=== PATIENT | female | born 1940 | race Caucasian/White ===

== ENCOUNTER 2018-02-05 11:17 | Emergency (ER) | payer MEDICARE ==
[2005-10-29 10:45] VITALS: BP 147/88
[~2018-02-05] VITALS: Ht 157.5 cm; Wt 94.5 kg
[~2018-02-05 11:17] MED LIST: BACTRIM DS 8001 TAB PO; CEPHALEXIN500 M1 PO; LORTAB 5/500 501 TAB PO; NO HOME MEDICATIONS; OMNICEF 300MG300 MG PO; PROAIR HFA0.09 MG/AC IH; ZESTORETIC 12.51 TAB; ZITHROMAX500 M2 PO
[2018-02-05 11:21] VITALS: TEMP 98.5
[2018-02-05 11:50] LABS: BASO # 0.1 (0.0-0.2); BASO % 1.2 % (0.0-2.0); EOS # 0.2 (0.0-0.7); EOS % 1.9 % (0-4.0); GRAN # 5.5 (1.4-6.5); GRAN % 61.4 % (42.2-75.2); HEMATOCRIT 42.7 % (37.0-47.0); LYMPH # 2.2 (1.2-3.4); LYMPH % 24.5 % (20.0-51.0); MEAN CELL VOLUME 96 fl (80.0-100.0); MEAN CORPUSCULAR HEMOGLOBIN 31 pg (27.0-31.0); MEAN CORPUSCULAR HGB CONC 33 g/dl (33.0-37.0); MEAN PLATELET VOLUME 11.3 fl (7.4-10.4); MONO % 10.7 % (1.7-9.3); PLATELET COUNT 283 K/mm3 (130-400); RED BLOOD COUNT 4.47 M/mm3 (4.10-5.30); REDCELL DISTRIBUTION WIDTH-CV 13.2 % (11.5-14.5)
[2018-02-05] MEDS ORDERED: TOPROL XL 25MG25 MG PO (11:52)
[2018-02-05] MEDS ORDERED: LEXAPRO 10MG10 MG PO (11:53)
[2018-02-05 11:55] LABS: PROTHROMBIN TIME 11.6 SECONDS (9.7-12.8)
[2018-02-05 12:00] LABS: ALANINE AMINOTRANSFERASE 16 U/L (9-52); ALBUMIN 4.1 gm/dL (3.5-5.0); ALKALINE PHOSPHATASE 60 U/L (50-136); ANION GAP 7 mmol/L (7-16); AST,SGOT 19 U/L (15-37); BILIRUBIN,TOTAL 0.5 mg/dL (0.0-1.0); BLOOD UREA NITROGEN 21 mg/dL (7-17); CALCIUM 9.5 mg/dL (8.4-10.2); CARBON DIOXIDE 24 mmol/L (22-30); CHLORIDE 109 mmol/L (98-107); GLUCOSE 111 mg/dL (74-106); LIPASE 206 U/L (23-300); POTASSIUM 4.4 mmol/L (3.4-5.0); SODIUM 140 mmol/L (137-145); TOTAL PROTEIN 7.3 gm/dL (6.4-8.2)
[2018-02-05 12:13] LABS: TROPONIN-I < 0.012 ng/mL (0.000-0.034)
[2018-02-05 12:42] LABS: COLLECTION METHOD CLEAN CATCH
[2018-02-05 12:48] LABS: MUCOUS Present /lpf; PH 6 (5-8); SQUAMOUS EPITHELIAL 0-2 /hpf; URINE APPEARANCE Clear; URINE BACTERIA None Seen /hpf; URINE BILIRUBIN Negative (NEGATIVE); URINE BLOOD Negative (NEGATIVE); URINE COLOR Yellow; URINE GLUCOSE Negative (NEGATIVE); URINE KETONE Negative (NEGATIVE); URINE LEUKOCYTE ESTERASE Negative (NEGATIVE); URINE NITRATE Negative (NEGATIVE); URINE PROTEIN(semi-quant) Negative (NEGATIVE); URINE RBC 0-2 /hpf; URINE UROBILINOGEN Negative (NEGATIVE); URINE WBC 0-2 /hpf
[2018-02-05 15:45] VITALS: BP 147/86; PULSE 73
== END 2018-02-05 16:00 | disposition home or self-care (01) ==
LOC: COL.ER 11:17
PROVIDERS: Emergency Medicine
DX: R53.81 Other malaise (principal); R20.2 Paresthesia of skin; I10 Essential (primary) hypertension
CPT/HCPCS: J2060; J7030; Q9967

== ENCOUNTER 2018-08-10 15:12 | Inpatient (IN) | payer MEDICARE ==
[~2018-08-10] VITALS: Ht 157.5 cm; Wt 88.6 kg
[~2018-08-10 15:12] MED LIST changes: +LEXAPRO 10MG10 MG PO; +TOPROL XL 25MG25 MG PO
[2018-08-10 16:19] LABS: CALCIUM 9.3 mg/dL (8.4-10.2); CREATININE, serum 0.96 (0.52-1.25); POTASSIUM 3.9 mmol/L (3.4-5.0)
[2018-08-10 16:20] LABS: HEMATOCRIT 41.7 % (37.0-47.0); HEMOGLOBIN 13.1 g/dl (12.5-16.0); MEAN CELL VOLUME 99 fl (80.0-100.0); MEAN CORPUSCULAR HEMOGLOBIN 31 pg (27.0-31.0); MEAN CORPUSCULAR HGB CONC 31 g/dl (33.0-37.0); MEAN PLATELET VOLUME 12.1 fl (7.4-10.4); PLATELET COUNT 269 K/mm3 (130-400); PROTHROMBIN TIME 11.7 SECONDS (9.7-12.8); RED BLOOD COUNT 4.23 M/mm3 (4.10-5.30); REDCELL DISTRIBUTION WIDTH-CV 13.3 % (11.5-14.5)
[2018-08-10 16:49] LABS: BASOPHIL 1 % (0-2); EOSINOPHIL 1 % (0-4); LYMPHOCYTE 13 % (20.0-51.0); NEUTROPHILS 71 % (42.0-75.2); PLATELET ESTIMATE NORMAL (NORMAL)
[2018-08-10 16:51] LABS: COLLECTION METHOD CATHETER
[2018-08-10 17:06] LABS: MUCOUS Present /lpf; PH 5 (5-8); SQUAMOUS EPITHELIAL 0-2 /hpf; URINE APPEARANCE Hazy; URINE BACTERIA None Seen /hpf; URINE BILIRUBIN Negative (NEGATIVE); URINE BLOOD 1+ (NEGATIVE); URINE COLOR Yellow; URINE GLUCOSE Negative (NEGATIVE); URINE KETONE Negative (NEGATIVE); URINE LEUKOCYTE ESTERASE Negative (NEGATIVE); URINE NITRATE Negative (NEGATIVE); URINE PROTEIN(semi-quant) Negative (NEGATIVE); URINE UROBILINOGEN Negative (NEGATIVE)
[2018-08-10 17:36] VITALS: BP 151/79; PULSE 80; TEMP 97.2
--- NOTE | 2018-08-10 17:48 | NUR ---
patient here from ER for complaints of severe vaginal pain. Assessment completed at this time. daughter at bedside. Patinet states no pain at this time
--- NOTE | 2018-08-10 19:00 | NUR ---
0-IVFS OF NS PLACED ON PUMP AT 75ML/HOUR. PT DENIES NEEDS AT THIS TIME.
[2018-08-10 20:00] VITALS: BP 123/73; PULSE 78; TEMP 98.4
--- NOTE | 2018-08-10 23:30 | NUR ---
2330-30ML NS FLUSHED INTO [place] CATHETER. 40ML YELLOW URINE QUICKLY RETURNED TO [place] BAG.
[2018-08-11 01:20] VITALS: BP 127/64; PULSE 73; TEMP 98.9
--- NOTE | 2018-08-11 01:20 | NUR ---
0120-PT VSS AND ASSISTED WITH REPOSITIONING. 60ML URINE OUTPUT NOTED IN [place] OVER PAST 2 HOURS. WILL CONTINUE TO MONITOR.
[2018-08-11 07:35] VITALS: BP 115/66; PULSE 69; TEMP 98.1
[2018-08-11 16:10] VITALS: BP 125/65; PULSE 76; TEMP 98.4
[2018-08-11 19:25] VITALS: BP 156/83; PULSE 79; TEMP 99.4
--- NOTE | 2018-08-11 20:40 | NUR ---
2039-PERICARE DONE. SHOWER OR BED BATH OFFERED TO PATIENT AND PT DECLINED. ORAL CARE OFFERED AND PT DECLINED. [place] DRAINING DARK YELLOW/ORANGE COLORED URINE.
--- NOTE | 2018-08-11 21:30 | NUR ---
2130-PT REPORTS URINE LEAKING ON LEG AND URGENCY TO PEE. PERIAREA WIPED AND QUARTER SIZED LIGHT YELLOW FLUID NOTED ON TOWEL. [place] DRAINING ORANGE/DARK YELLOW COLORED URINE. DISCUSSED WITH PT THAT URGENCY MIGHT BE BLADDER SPASMS. PT AGREED AND DECLINED NEED FOR ANYTHING AT THIS TIME.
--- NOTE | 2018-08-11 23:30 | NUR ---
2330-PT ASLEEP WITH RESP EVEN AND NONLABORED. GOOD OUTPUT NOTED IN [place] CATHETER.
[2018-08-11 23:50] VITALS: BP 154/90; PULSE 81; TEMP 98.5
--- NOTE | 2018-08-11 23:50 | NUR ---
2350-PT CALLED OUT AND REPORTED THAT SHE PEED THE BED. PT GOWN, BED PAD, AND SHEET WET WITH YELLOW/ORANGE URINE. CATHETER NOTED TO STILL BE DRAINING URINE AT THIS TIME AND [place] BAG EMPTIED OF 12OOML FOR A 6 HOUR TOTAL THIS SHIFT. CATHETER CARE DONE, BEDDING AND GOWN CHANGED. PT TEARY AND STATED "I JUST WANT THIS DAMN CATHETER OUT ITS HURTING ME, AND THE DAMN THING ISNT EVEN WORKING NOW." PT OFFERED PERCOCET FOR BACK AND RIB DISCOMFORT AND PT STATED "I DONT WANT ANYMORE DAMN PILLS". PT WRAPPED IN WARM BLANKET AND DR WILLIS CONTACTED AT 0005 PER PT REQUEST AND NOTIFIED OF URINE LEAKING AROUND CATHETER AND PT REQUEST TO REMOVE CATHETER. DR WILLIS REQUESTED CATHETER REMAIN IN PLACE AT THIS TIME. PT NOTIFIED AT THIS TIME.
--- NOTE | 2018-08-12 00:10 | NUR ---
0010-PT NOTIFIED THAT DR WILLIS WAS CONTACTED AND HE REQUESTS THAT HER CATHETER REMAIN IN PLACE UNTIL MORNING. PAIN MEDICATION OFFERED AND DECLINED BY PATIENT. OTHER COMFORT MEASURES OFFERED, SUCH BACK RUB AND WARM BLANKETS AND PT DECLINED AT THIS TIME.
--- NOTE | 2018-08-12 00:25 | NUR ---
0025-PT CALLED OUT AND REPORTED THAT SHE HAD PEED THE BED AGAIN. RN NOTED BED PAD, PT GOWN AND PT BEDDING AGAIN WET WITH URINE. PT STATED "I AM GOING TO PULL THIS DAMN CATHETER OUT IF YOU DONT TAKE IT OUT NOW. RN DISCUSSED THAT DR WANTS CATHETER TO REMAIN IN PLACE AND PT STATED "THIS WHOLE DAMN MESS IS GOING TO KILL ME. NOTHING IS BEING DONE TO HELP ME AND IM GOING TO PULL THIS DAMN CATHETER OUT IF YOU DONT REMOVE IT. 0030-DR WILLIS AGAIN CONTACTED ABOUT PT REQUEST TO TAKE CATHETER OUT AND PT IS THREATENING TO PULL CATHETER OUT ON HER OWN. ORDER RECEIVED TO DISCONTINUE CATHETER AT THIS TIME.
--- NOTE | 2018-08-12 00:45 | NUR ---
0045-[place] DISCONTINUED AND PT ASSISTED TO BEDSIDE COMMODE. PT IMMEDIATELY VOIDED 150ML OF ORANGE/YELLOW URINE. PT SHAKY AND REPORTS BEING VERY ANXIOUS AND FEELING OUT OF CONTROL. WARM BLANKET WRAPPED AROUND PT AND RN SPOKE WITH PT BEDDING AND GOWN WERE CHANGED. PT REPORTED TEA HELPS HER TO RELAX AND THAT SHE IS VERY ANXIOUS AND ITS NOT GOOD FOR HER HEART. DECAFFINATED TEA GIVEN TO PT AND PT STARTING TO RELAX A LITTLE SHE IS DISTRACTED BY DISCUSSIONS ABOUT HER FAMILY. 0110-PT ASSISTED BACK TO BED AND KPAD APPLIED TO ABDOMEN PER PT REQUEST. PT ASSISTED TO PRONE POSITION PER HER REQUEST AND PT GIVEN SHOULDER AND BACK RUB TO RELAX HER. 0120-PT REPORTED FEELING BETTER AND LIGHTS DIMMED. STATES SHE CAN MAYBE SLEEP NOW.
--- NOTE | 2018-08-12 03:00 | NUR ---
0300-PT REPORTED THAT SHE PEED ON MAXIPAD AND THEN GOT UP TO COMMODE AND PEED A LITTLE. PERIPAD NOTED TO BE FULLY SATURATED AND 50ML URINE EMPTIED FROM COMMODE. PT REQUESTED SNACK AT THIS TIME AND REPORTED SHE FEELS BETTER NOW. DENIES NEEDS AT THIS TIME.
[2018-08-12 08:30] VITALS: BP 139/82; PULSE 83; TEMP 98
--- NOTE | 2018-08-12 09:16 | NUR ---
Continued visit attempts; Activities Volunteer left card letting patient know of the availability of Spiritual Care at our hospital.
--- NOTE | 2018-08-12 10:20 | NUR ---
Dr. Ovalles in to see patient, no new orders.
--- NOTE | 2018-08-12 12:15 | NUR ---
Dr. Barrera at bedside for cystoscopy. Discusses plan of care with patient including getting fitted for a pessary with possible discharge home tomorrow.
--- NOTE | 2018-08-12 16:30 | NUR ---
Cami Hughes APRN at bedside for a pessary fitting.
[2018-08-12 16:45] VITALS: BP 124/80; PULSE 78; TEMP 98.1
[2018-08-12 19:20] VITALS: BP 149/87; PULSE 80; TEMP 98.5
[2018-08-13 07:30] VITALS: BP 147/78; PULSE 74; TEMP 98.3
--- NOTE | 2018-08-13 15:45 | NUR ---
Discharge instructions given, verbalizes understanding. Dismissed to home with daughter in law. Pushed in wheel chair and assisted in vehichle.
== END 2018-08-13 15:45 | disposition home or self-care (01) | DRG 748 ==
LOC: COL.ER 15:12 → OB 16:37
PROVIDERS: Emergency Medicine; ADMIT Obstetrics & Gynecology
PROC: 0USGXZZ Reposition Vagina, External Approach (ICD-10-PCS; principal; 2018-08-10)
PROC: 0TJB8ZZ Inspection of Bladder, Via Natural or Artificial Opening Endoscopic (ICD-10-PCS; 2018-08-12)
DX: N99.3 Prolapse of vaginal vault after hysterectomy (principal); I35.0 Nonrheumatic aortic (valve) stenosis; I10 Essential (primary) hypertension; E78.5 Hyperlipidemia, unspecified; M54.5 Low back pain; M17.0 Bilateral primary osteoarthritis of knee; E66.9 Obesity, unspecified; I05.0 Rheumatic mitral stenosis; R33.8 Other retention of urine
CPT/HCPCS: J3010; J7030